=== PATIENT | male | born 1995 | race Caucasian/White ===

== ENCOUNTER 2016-06-01 17:45 | Emergency (ER) | payer OTHER ==
--- NOTE | 2016-06-01 18:28 | PDOC ---
Gen Adult / Medical Screen HPI - General Chief Complaint: General Medical Stated Complaint: LUMP ON LEFT CHEST x2 WEEKS Date Seen by Provider: 06/01/16 Time Seen by Provider: 16:10 Source: POSITIVE: Patient Exam Limitations: POSITIVE: No limitations Nurse's Notes Reviewed & Considered: Yes - Indicators Temperature Between 95 and 101 Degrees: Yes Respirations Between 12 and 20: Yes Blood Pressure Between 100-165 (sys) and 60-100 ([place]): Yes Pulse Range Between 60-105 (100 for age > 60 years): Yes Severe Pain (Greater than 5/10 Reported): No Chest or Abdominal Pain: Yes Inability to Walk: No Pt Reports Active High Risk Cond. (TB/Hepatitis/HIV/Chemo): No Abnormal Mental Status: No - History of Present Illness Body Location Affected: REPORTS: Chest Timing: REPORTS: Constant Duration: Unknown Similar Symptoms Previously: No Recent Care Received: REPORTS: Denies - Patient Home Medications Home Medications: Home Medications NK [No Home Medications Reported] 06/01/16 - Patient Allergies Allergies/Adverse Reactions: Allergies Allergy/AdvReac Type Severity Reaction Status Date / Time No Known Allergies Allergy Verified 06/01/16 18:38 ROS - Limitations ROS Limitations: No Limitations Constitution: REPORTS: Denies Symptoms Cardiovascular: REPORTS: Chest Pain (Chest pain related to not over his left anterior chest wall at approximately T5) Respiratory: REPORTS: Hurts To Breathe Neurological: REPORTS: Denies Neuro Symptoms Gastrointestinal: REPORTS: Denies GI Symptoms Endocrine: REPORTS: Denies Symptoms Musculoskeletal: REPORTS: Denies MS Symptoms Genitourinary: REPORTS: Denies Symptoms Eyes: REPORTS: Denies Symptoms ENT: REPORTS: Denies Symptoms Skin: REPORTS: Denies Skin Symptoms Lympathic: REPORTS: Denies Lympathic Symptoms Immunologic: POSITIVE: Denies Symptoms Psychiatric: POSITIVE: Denies Psych Symptoms Gen Adult/Medical Screen Exam - General Appearance General Appearance: POSITIVE: Alert, Cooperative, No Acute Distress, No Evidence of Trauma - HEENT HEENT: POSITIVE: Head Inspection Nml, Eyes Inspection Nml, Ears Inspection Nml, Nose Inspection Nml, PERRL, EOMI - Pupils Pupil Size: 4 mm: Bilateral - Neck Neck: POSITIVE: Normal Inspection, Thyroid Normal - Respiratory Respiratory: POSITIVE: No Respiratory Distress, Breath Sounds Normal, Other ( Chest tenderness over the T5 region of his left anterior chest wall. There is a palpable tender nodule. This is in the region of his costosternal junction.) - Cardiovascular Cardiovascular: POSITIVE: Regular Rate & Rhythm, No Murmur, No Gallop, PMI Normal - Abdomen Abdomen: Denies Tenderness: (All Quadrants) - Back Back: POSITIVE: Normal Inspection - Neurological / Psychological Mental Status: POSITIVE: Mood Normal, Affect Normal Orientation: POSITIVE: Oriented x 3 - Skin Skin: POSITIVE: Normal Color, Warm, Dry, No Rash - Extremities Extremity: Non-Tender: (All Extremities), Normal ROM: (All Extremities), Normal Inspection: (All Extremities) Procedures - Laceration/Wound Repair Did patient have a laceration repair: No Gen Adlt/Medical Scrn Progress - Results Reviewed by me Xrays/CTs/US Reviewed by me: Yes Discussed with Radiologist: Yes - Patient's Progress Pain Medication Addressed: POSITIVE: Yes Re-Examine Time: 19:46 Status: POSITIVE: Improved MDM / ED Course: Patient brought to the emergency room and examined, chest x-rays obtained. Chest x-ray shows no acute cardiopulmonary processes and normal ribs. Patient' s pain was improved with [place] PO. Assessment rib pain. Plan: NSAIDs, steroids, [place]. If pain persisting greater than 10 days. - Consult Counseled: POSITIVE: Patient, RE: Radiology Results, RE: DX Patient Care Time - Estimated PCT Patient Care Time (In Minutes): 20 Vital Signs - Recent Vital Signs Vital Signs: Vital Signs (Last 8 hours) Temp Pulse Resp BP Pulse Ox 06/01/16 17:45 98.7 F 74 14 136/73 94 - VS Reviewed Vital Signs Reviewed: Yes Discharge Clinical Impression: Rib pain on left side Discharge Disposition: Discharged to Home Condition: Good Patient Instructions Given at Discharge: Chest Pain (ED) Follow Up With: NONE,NONE [Primary Care Provider] -
[2016-06-01] MEDS: HYDROcodone-APAP 5 MG -325 MG TABLET PO ONE (18:39)
[2016-06-01 18:47] VITALS: RESP 14; TEMP 98.7
--- NOTE | 2016-06-01 19:16 | DI ---
HISTORY: Left anterior upper chest wall pain. No reported trauma. States he can feel lump in this area. COMPARISON: None available. FINDINGS: Multiple views of the chest demonstrate anatomic alignment without fractures. There is no radiopaque abnormality to suggest a palpable mass. IMPRESSION: 1. Normal rib series.
== END 2016-06-01 20:40 | disposition home or self-care (01) ==
LOC: ER 17:45
DX: R07.81 Pleurodynia (principal); R07.9 Chest pain, unspecified
CPT/HCPCS: 71101; 99282